=== PATIENT | female | born 1965 | race Caucasian/White ===

== ENCOUNTER → 2021-09-25 10:56 | Outpatient (BNVA) | payer OTHER, SELFPAY | PROVIDERS: Family Provider Nurse Practitioner; PCP Nurse Practitioner; Visit Provider Nurse Practitioner | DX: Z00.00 Encounter for general adult medical examination without abnormal findings (principal); Z12.39 Encounter for other screening for malignant neoplasm of breast | CPT/HCPCS: 80053; 80061; 82607; 85025 ==

== ENCOUNTER → 2021-09-26 10:29 | Outpatient (BNVA) | payer OTHER, SELFPAY | PROVIDERS: Family Provider Nurse Practitioner; PCP Nurse Practitioner; Visit Provider Nurse Practitioner | DX: Z11.59 Encounter for screening for other viral diseases (principal); R74.8 Abnormal levels of other serum enzymes | CPT/HCPCS: 86705; 86706; 86709; 86803; 87340 ==

== ENCOUNTER → 2021-10-03 13:40 | Outpatient (BNVA) | payer OTHER, SELFPAY | PROVIDERS: Family Provider Nurse Practitioner; PCP Nurse Practitioner; Visit Provider Nurse Practitioner Family | DX: M25.531 Pain in right wrist (principal); M25.431 Effusion, right wrist; M19.031 Primary osteoarthritis, right wrist | CPT/HCPCS: 73110 ==

== ENCOUNTER 2021-11-06 14:27 | Outpatient (CLI) | payer MEDICAID, SELFPAY ==
--- NOTE | 2021-11-06 16:00 | MR_ITS ---
WS: [id number] INDICATION: Wrist pain TECHNIQUE: MRI of the right wrist without gadolinium enhancement. Coronal T1, coronal PD, coronal STI R, coronal 3-D FSPGR, axial T2, axial PD, sagittal T1. FINDINGS: Advanced arthritis radiocarpal joint with subchondral cystic change. Associated periarticul ar sclerosis involving the radial scaphoid articulation. Degenerative arthritis at the DRUJ. Subchond ral cystic change involving the carpal bones. Mild degenerative arthritis of the first CMC and STT. S ubchondral cystic change involving the distal ulna styloid. Normal carpal tunnel. Normal extensor carpi ulnaris. Normal extensor and flexor compartment tendons. Small amount of soft tissue edema along the extensor retinaculum. Normal scapholunate articulation. S mall amount of fluid in the distal radial ulnar joint with mild diffuse soft tissue edema about the d orsal wrist. Recommend correlation for cellulitis. Small amount of fluid or ganglion cyst along the r adial styloid . MR/MR wrist RT wo con* [id number] IMPRESSION: 1. Advanced osteoarthritis involving the radiocarpal joint at the radial scaph oid articulation with subchondral cystic change. 2. Edema with osteoarthritis and subchondral cystic change involving the proxi mal and distal carpal rows. This is worse involving the scaphoid and capitate. 3. Fluid and edema along the distal radial ulnar joint with subchondral cystic change involving the distal ulna. 4. Joint effusion at the DRUJ. 5. Small amount of fluid or ganglion cyst along the radial styloid. 6. Soft tissue edema involving the dorsal soft tissues and extensor retinaculu m. 7. Normal extensor and flexor compartment tendons. Normal carpal tunnel.
== END 2021-11-06 14:28 | disposition home or self-care (01) ==
PROVIDERS: PCP Nurse Practitioner; Visit Provider Nurse Practitioner Family
DX: M19.031 Primary osteoarthritis, right wrist (principal); M25.431 Effusion, right wrist; R60.0 Localized edema
CPT/HCPCS: 73221

== ENCOUNTER 2021-12-04 12:56 | Outpatient (CLI) | payer MEDICAID, SELFPAY ==
--- NOTE | 2021-12-04 | US_ITS ---
WS: [id number] RIGHT UPPER QUADRANT ULTRASOUND HISTORY: R74.8 - Abnormal levels of other serum enzymes COMPARISON: None available. Liver: 14.0 cm in length. Normal size liver. No bile duct dilatation or mass. Portal Vein: Normal hepatopetal flow with monophasic waveform. Gallbladder: Normally distended gallbladder with no stones or wall thickening. CBD: 0.2 cm Pancreas: Normal size and echogenicity. Right kidney: 10.3 cm in length. Cortical cyst in the mid kidney measures 1.6 x 1.0 x 1.3 cm. No faisal d mass or obstruction identified. Aorta and IVC: Unremarkable abdominal aorta and IVC. No ascites. US/US liver [id number] IMPRESSION: 1. Simple RIGHT renal cyst. 2. Negative ultrasound of the liver. No mass or bile duct dilatation.
== END 2021-12-04 12:57 | disposition home or self-care (01) ==
LOC: RAD 13:02
PROVIDERS: PCP Nurse Practitioner; Visit Provider Nurse Practitioner
DX: R74.8 Abnormal levels of other serum enzymes (principal); N28.1 Cyst of kidney, acquired
CPT/HCPCS: 76705

== ENCOUNTER 2021-12-18 14:07 | Outpatient (CLI) | payer MEDICAID, SELFPAY | END 2021-12-18 14:08 | disposition home or self-care (01) | LOC: SPT 14:08 | PROVIDERS: PCP Nurse Practitioner; Visit Provider Orthopaedic Surgery | DX: Z46.89 Encounter for fitting and adjustment of other specified devices (principal); M19.031 Primary osteoarthritis, right wrist | CPT/HCPCS: 97760; L3908 ==

== ENCOUNTER → 2021-12-20 08:58 | Outpatient (BNVA) | payer MEDICAID, SELFPAY | PROVIDERS: PCP Nurse Practitioner; Referring Provider Orthopaedic Surgery; Visit Provider Physician Assistant | DX: M47.896 Other spondylosis, lumbar region (principal); M47.897 Other spondylosis, lumbosacral region; M54.50 Low back pain, unspecified | CPT/HCPCS: 72110 ==

== ENCOUNTER → 2022-03-06 09:18 | Outpatient (BNVA) | payer MEDICAID, SELFPAY | PROVIDERS: PCP Nurse Practitioner; Visit Provider Nurse Practitioner Family | DX: M48.062 Spinal stenosis, lumbar region with neurogenic claudication (principal); M51.36 Other intervertebral disc degeneration, lumbar region; M43.16 Spondylolisthesis, lumbar region; M54.50 Low back pain, unspecified; M53.86 Other specified dorsopathies, lumbar region; G89.29 Other chronic pain; R68.89 Other general symptoms and signs | CPT/HCPCS: 72100 ==

== ENCOUNTER 2022-03-27 12:30 | Outpatient (CLI) | payer MEDICAID, SELFPAY ==
--- NOTE | 2022-03-27 12:36 | MM_ITS ---
WS: [id number] BILATERAL SCREENING DIGITAL BREAST TOMOSYNTHESIS MAMMOGRAM WITH CAD HISTORY: SCREENING COMPARISON: 01/15/2022 and 09/25/2018 Bilateral CC and MLO views with tomosynthesis and synthetic mammography submitted. Computer aided det ection analyzed. Breast composition: The breasts are extremely dense, which lowers the sensitivity of mammography. No suspicious masses, microcalcifications or architectural distortion. Benign calcifications in each tari ast. MM/[place] [id number] IMPRESSION: BI-RADS: 2-Benign FOLLOW UP: 1 Year Follow-up
== END 2022-03-27 12:31 | disposition home or self-care (01) ==
LOC: RAD 12:34
PROVIDERS: PCP Nurse Practitioner; Visit Provider Nurse Practitioner
DX: Z12.31 Encounter for screening mammogram for malignant neoplasm of breast (principal)
CPT/HCPCS: 77063; 77067

== ENCOUNTER → 2022-05-29 10:09 | Outpatient (BNVA) | payer MEDICAID, SELFPAY | PROVIDERS: PCP Nurse Practitioner; Visit Provider Nurse Practitioner Family | DX: M25.561 Pain in right knee (principal); G89.29 Other chronic pain; M54.50 Low back pain, unspecified; M25.361 Other instability, right knee | CPT/HCPCS: 73562 ==

== ENCOUNTER 2022-06-04 10:14 | Outpatient (CLI) | payer MEDICAID, SELFPAY ==
--- NOTE | 2022-06-04 10:23 | XR_ITS ---
WS: [id number] Right knee, 3 views, 06/04/2022 Clinical Data: pain Comparison: Right knee, 05/29/2022. Findings: No definite fractures or dislocations are seen. There is irregularity of the articular surface of the lateral tibial plateau. There is spurring of the medial femoral condyle. There is a posterior super ior patellar spur. The soft tissues are unremarkable. XR/XR knee RT 3V* [id number] Impression: 1. Irregularity of the articular surface of the lateral tibial plateau but a de finite fracture is not seen. 2. Mild osteoarthritis of the right knee. Kellgren-Luis Antonio Classification: grade 1 (doubtful): doubtful joint space narr owing and possible osteophytic lipping
== END 2022-06-04 10:15 | disposition home or self-care (01) ==
PROVIDERS: PCP Nurse Practitioner; Visit Provider Physician Assistant
DX: M17.11 Unilateral primary osteoarthritis, right knee (principal)
CPT/HCPCS: 73562

== ENCOUNTER → 2022-06-11 13:29 | Outpatient (BNVA) | payer MEDICAID, SELFPAY | PROVIDERS: PCP Nurse Practitioner; Visit Provider Physician Assistant | DX: M17.11 Unilateral primary osteoarthritis, right knee (principal) | CPT/HCPCS: 99214 ==

== ENCOUNTER 2022-08-16 12:34 | Outpatient (CLI) | payer MEDICAID, SELFPAY ==
--- NOTE | 2022-08-16 13:45 | MR_ITS ---
WS: [id number] MRI RIGHT KNEE NONCONTRAST TECHNIQUE: Axial PD, coronal PD fat sat, coronal PD, sagittal PD, and sagittal PD fat-sat images obta ined. CLINICAL INFORMATION: right knee pain COMPARISON: None. FINDINGS: Distal quadriceps and patella tendons are intact. Hypertrophic patella. Normal ACL and PCL. Chronic t hinning of the medial and lateral meniscus. Chronic intrasubstance signal abnormality involving the m edial meniscus. No acute appearing meniscal tears. Moderate to advanced degenerative arthritis involving the medial and lateral joint compartments with grade III-IV chondromalacia. Small amount of subchondral edema involving the medial femoral condyle. Advanced chondromalacia patella. Moderate suprapatellar effusion. Slight lateral subluxation of the p atella, which is likely due to positioning. Medial and lateral patellar retinacula appear intact. Sma ll osteochondral fragment or loose body adjacent to the lateral patella facet. Medial collateral liga ment appears intact. Thinning with partial tear involving the lateral collateral ligament at the prox imal origin. Hypertrophic changes along the joint line. MR/MR knee RT wo con* [id number] IMPRESSION: 1. No evidence of tibial plateau fracture. 2. ACL and PCL appear intact. 3. Advanced degenerative arthritis with grade III to IV chondromalacia medial and lateral joint compartments. 4. Lateral subluxation of the patella with advanced chondromalacia some of whi ch is likely due to positioning. Small osteochondral fragment or loose body adj acent to the lateral patella facet. 5. Partial intrasubstance tear at the origin of the lateral collateral ligamen t. MCL appears intact. 6. Chronic thinning of the medial and lateral meniscus. No acute appearing men iscal tears. Outbridge grading:
== END 2022-08-16 12:35 | disposition home or self-care (01) ==
LOC: RAD 12:36
PROVIDERS: Visit Provider Physician Assistant
DX: S83.421A Sprain of lateral collateral ligament of right knee, initial encounter (principal); S83.001A Unspecified subluxation of right patella, initial encounter; X58.XXXA Exposure to other specified factors, initial encounter; M22.41 Chondromalacia patellae, right knee
CPT/HCPCS: 73721

== ENCOUNTER → 2022-11-12 10:00 | Outpatient (BNVA) | payer MEDICAID, SELFPAY | PROVIDERS: Visit Provider Physician Assistant | DX: M17.0 Bilateral primary osteoarthritis of knee (principal) | CPT/HCPCS: 73560; 73565 ==

== ENCOUNTER → 2023-08-12 14:39 | Outpatient (BNVA) | payer MEDICAID, SELFPAY | PROVIDERS: PCP Nurse Practitioner Family; Visit Provider Specialist | DX: R41.3 Other amnesia (principal); G30.9 Alzheimer's disease, unspecified; F02.80 Dementia in other diseases classified elsewhere, unspecified severity, without behavioral disturbance, psychotic disturbance, mood disturbance, and anxiety | CPT/HCPCS: 99205 ==